=== PATIENT | female | born 1990 | race African-American/Black ===

== ENCOUNTER 2021-10-14 16:27 | Observation (INO) | payer MEDICAID, OTHER ==
[~2021-10-14] VITALS: Ht 175.3 cm; Wt 107.0 kg
[~2021-10-14 16:27] MED LIST: CEPH250C2 MT; ONDA4TAB11 PO
[2021-10-14] MEDS ORDERED: PREN1TAB78 PO (20:55)
[2021-10-16] MEDS ORDERED: IBUP-2030 PO ×2 (12:52)
== END 2021-10-14 21:10 | disposition home or self-care (01) ==
LOC: 8 EST LDRP 16:27
PROVIDERS: ADMIT Obstetrics & Gynecology; ATTEND Obstetrics & Gynecology
DX: O36.8130 Decreased fetal movements, third trimester, not applicable or unspecified (principal); O26.893 Other specified pregnancy related conditions, third trimester; R10.9 Unspecified abdominal pain; Z3A.39 39 weeks gestation of pregnancy
CPT/HCPCS: 59025; 76805; 76818; G0378; 99281

== ENCOUNTER 2021-10-15 11:21 | Inpatient (IN) | payer MEDICAID ==
[~2021-10-15] VITALS: Ht 175.3 cm; Wt 107.0 kg
[~2021-10-15 11:21] MED LIST changes: -CEPH250C2 MT; -ONDA4TAB11 PO; +PREN1TAB78 PO
[2021-10-15] MEDS ORDERED: CARBOPROST TROMETHAMINE 250 MCG/ML AMPUL IM PRN (12:00)
[2021-10-15] MEDS ORDERED: LACTATED RINGERS 1,000 ML IV SCH (12:00)
[2021-10-15] MEDS ORDERED: NALOXONE HCL 0.4 MG/ML 1ML VIAL IM PRN (12:00)
[2021-10-15] MEDS ORDERED: BUTORPHANOL TARTRATE 2 MG/ML VIAL IV PRN (12:00)
[2021-10-15] MEDS ORDERED: METHYLERGONOVINE MALEATE 0.2 MG/ML IM PRN (12:00)
[2021-10-15] MEDS ORDERED: DEXT 5%/LR + PITOCIN 20UNITS/L 1,000 ML IV SCH ×2 (12:00→15:30)
[2021-10-15] MEDS ORDERED: LIDOCAINE HCL 1% 20ML VIAL (Pyxis) INJ INFIL SCH (12:00)
[2021-10-15 12:55] LABS: BASOPHILS % 0.3 % (0.0-2.0); HEMATOCRIT. 36.4 % (36.0-48.0); HEMOGLOBIN. 11.3 g/dL (12.0-16.0); LYMPHOCYTES % 7.5 % (20.0-50.0); MEAN CORPUSCULAR HEMOGLOBIN 26.6 pg (28.0-32.0); MEAN CORPUSCULAR VOLUME 85.8 fL (81.0-99.0); MEAN PLATELET VOLUME 10.7 fl (7.4-10.4); MONOCYTES % 4.1 % (2.0-8.0); NEUTROPHILS % 88.1 % (40.0-76.0); PLATELET 171 x1000/uL (130-400); RED BLOOD CELL COUNT 4.24 mill/uL (4.2-5.4); RED CELL DISTRIBUTION WIDTH 14.4 % (11.6-14.6)
[2021-10-15] MEDS ORDERED: PENICILLIN G POTASSIUM 5 MMU in DEXT 5% WATER 100 ML IV SCH (13:00)
[2021-10-15 13:18] LABS: INR 0.9; PARTIAL THROMBOPLASTIN TIME 25.6 sec (23.4-31.0)
[2021-10-15 13:22] LABS: OPIATES URINE SCREEN NEGATIVE (NEGATIVE); PHENCYCLIDINE URINE SCREEN NEGATIVE (NEGATIVE)
[2021-10-15 13:23] LABS: *AMPHETAMINES SCREEN URINE NEGATIVE (NEGATIVE); *BARBITURATES SCREEN URINE NEGATIVE (NEGATIVE); *BENZODIAZEPINES SCREEN URINE NEGATIVE (NEGATIVE); *COCAINE SCREEN URINE NEGATIVE (NEGATIVE); CANNABINOID URINE SCREEN NEGATIVE (NEGATIVE); METHADONE URINE SCREEN NEGATIVE (NEGATIVE)
[2021-10-15 13:27] LABS: CLARITY URINE TURBID (CLEAR); COLOR URINE ORANGE (YELLOW); KETONES URINE TRACE (NEGATIVE); LEUKOCYTE ESTERASE URINE 3+ (NEGATIVE); NITRITE URINE NEGATIVE (NEGATIVE); OCCULT BLOOD URINE 3+ (NEGATIVE); PH URINE 5.5 (4.5-8.0); PROTEIN URINE 2+ (NEGATIVE); SPECIFIC GRAVITY URINE 1.023 (1.005-1.030)
[2021-10-15 14:08] LABS: HEPATITIS B SURFACE ANTIGEN NEGATIVE
[2021-10-15 15:30] VITALS: BP 123/85
[2021-10-15] MEDS ORDERED: LANOLIN OINT 7GM TUBE TOP PRN (15:30)
[2021-10-15] MEDS ORDERED: HEMORRHOIDAL SUPP PR PRN (15:30)
[2021-10-15] MEDS ORDERED: IBUPROFEN 800MG TABLET PO PRN (15:30)
[2021-10-15] MEDS ORDERED: DIPHENHYDRAMINE 25MG CAPSULE PO PRN (15:30)
[2021-10-15] MEDS ORDERED: IBUPROFEN 400MG TABLET PO PRN (15:30)
[2021-10-15] MEDS ORDERED: BISACODYL 10MG SUPP PR PRN (15:30)
[2021-10-15] MEDS ORDERED: GLYCERIN/WITCH HAZEL LEAF MEDICATED PAD TOP PRN (15:30)
[2021-10-15] MEDS ORDERED: ACETAMINOPHEN WITH CODEINE 300/30MG TABLET PO PRN (15:30)
[2021-10-15] MEDS ORDERED: BENZOCAINE/LANOLIN/ALOE VERA SPRAY TOP PRN (15:30)
[2021-10-15] MEDS ORDERED: RHO(D) IMMUNE GLOBULIN 300 MCG/SYR IM PRN (15:30)
[2021-10-15 16:30] VITALS: BP 126/82
[2021-10-15] MEDS ORDERED: PENICILLIN G POTASSIUM 2.5 MMU in DEXTROSE 5% WATER 50 ML IV SCH (17:00)
[2021-10-15] MEDS ORDERED: METHYLERGONOVINE MALEATE 0.2MG TABLET PO SCH (17:00)
[2021-10-15 17:22] VITALS: BP 115/78
[2021-10-15] MEDS ORDERED: MAGNESIUM/ALUMINUM HYDROXIDE/SIMETHICONE 30ML UDC PO SCH (17:30)
[2021-10-15] MEDS ORDERED: SIMETHICONE 80MG TABLET CHEW PO SCH (18:00)
[2021-10-15 19:30] VITALS: BP 131/82
[2021-10-15] MEDS ORDERED: DOCUSATE SODIUM 100MG CAPSULE PO SCH (21:00)
[2021-10-16 04:00] VITALS: BP 113/77
[2021-10-16 06:01] LABS: BASOPHILS % 0.4 % (0.0-2.0); HEMATOCRIT. 28.3 % (36.0-48.0); HEMOGLOBIN. 9.3 g/dL (12.0-16.0); LYMPHOCYTES % 11.2 % (20.0-50.0); MEAN CORPUSCULAR HEMOGLOBIN 27.6 pg (28.0-32.0); MEAN CORPUSCULAR VOLUME 84.2 fL (81.0-99.0); MEAN PLATELET VOLUME 10.3 fl (7.4-10.4); NEUTROPHILS % 83.4 % (40.0-76.0); PLATELET 150 x1000/uL (130-400); RED BLOOD CELL COUNT 3.36 mill/uL (4.2-5.4)
[2021-10-16] MEDS ORDERED: FERROUS SULFATE 325MG TABLET PO SCH (07:30)
[2021-10-16 08:30] VITALS: BP 115/84
[2021-10-16] MEDS ORDERED: PRENATAL VIT/FE FUMARATE/FA TABLET PO SCH (09:00)
[2021-10-16] MEDS ORDERED: IBUP-2030 PO ×2 (12:52)
== END 2021-10-16 15:30 | disposition home or self-care (01) | DRG 560 ==
LOC: 8 EST LDRP 11:21 → OBSVTOIN 11:21 → 8EST 15:22
PROVIDERS: ADMIT Obstetrics & Gynecology; ATTEND Obstetrics & Gynecology
PROC: 10E0XZZ Delivery of Products of Conception, External Approach (ICD-10-PCS; principal; 2021-10-15)
PROC: 3E0R3BZ Introduction of Anesthetic Agent into Spinal Canal, Percutaneous Approach (ICD-10-PCS; 2021-10-15)
PROC: 00HU33Z Insertion of Infusion Device into Spinal Canal, Percutaneous Approach (ICD-10-PCS; 2021-10-15)
DX: O77.0 Labor and delivery complicated by meconium in amniotic fluid (principal); Z37.0 Single live birth; Z3A.39 39 weeks gestation of pregnancy
CPT/HCPCS: 36415; 80305; 81003; 85025; 86592; 86703; 86762; 86850; 86900; 87077; 87340; 99281; J2540; J2590; J7060

== ENCOUNTER 2022-03-14 17:21 | Emergency (ER) | payer OTHER ==
[~2022-03-14] VITALS: Ht 175.3 cm; Wt 82.0 kg
[2022-03-14 17:33] VITALS: BP 102/69
[2022-03-14 22:53] LABS: CLARITY URINE TURBID (CLEAR); COLOR URINE DARK YELLOW (YELLOW); KETONES URINE TRACE (NEGATIVE); LEUKOCYTE ESTERASE URINE 3+ (NEGATIVE); NITRITE URINE NEGATIVE (NEGATIVE); OCCULT BLOOD URINE 2+ (NEGATIVE); PH URINE 5.5 (4.5-8.0); PROTEIN URINE 2+ (NEGATIVE); SPECIFIC GRAVITY URINE 1.014 (1.005-1.030)
[2022-03-14] MEDS ORDERED: CEPH500T MT (23:12)
[2022-03-14] MEDS ORDERED: CEPHALEXIN 250MG CAPSULE PO ONE (23:15)
== END 2022-03-14 23:30 | disposition home or self-care (01) ==
LOC: ER 17:21
DX: N39.0 Urinary tract infection, site not specified (principal); J45.909 Unspecified asthma, uncomplicated; R06.02 Shortness of breath; R05.9 Cough, unspecified; Z20.822 Contact with and (suspected) exposure to COVID-19
CPT/HCPCS: 81003; 81025; 87077; 87086; 87186; 87426; 87804; 99283; C9803